=== PATIENT | female | born 1965 | race Two or more races ===

== ENCOUNTER 2024-09-25 08:41 | Outpatient (RCR) | payer MEDICAID, SELFPAY ==
--- NOTE | 2024-09-25 09:22 | PT.ODAYNRPT ---
PT Outpatient Daily Note OP Daily Note Outpatient Physical Therapy Treatment Date: 09/25/24 Visit Reasons: Numbness/Tingling Subjective: Pt reports her symptoms have improved. As per pt she has a follow up some time this or next week. Objective: Please see flow sheet for ther ex list. Assessment: Pt tolerated stretches well, some UE symptoms during door stretch exercise that resolved post exercise. Plan: Continue with POC. Procedure Charges Therapeutic Exercise 30 minutes: Yes
== END 2024-10-19 23:59 | disposition home or self-care (01) ==
LOC: CPTX 08:41
DX: R20.2 Paresthesia of skin (principal); M25.642 Stiffness of left hand, not elsewhere classified; M25.641 Stiffness of right hand, not elsewhere classified
CPT/HCPCS: 97110